=== PATIENT | female | born 1990 | race Caucasian/White ===

== ENCOUNTER 2018-06-28 09:02 | Day surgery (SDC) | payer MEDICAID ==
[2018-06-24 15:22] LABS: CLARITY,URINE SLIGHTLY CLOUDY (Clear); COLOR,URINE YELLOW (Yellow); GLUCOSE, URINE NEGATIVE (Neg); KETONES,URINE NEGATIVE (Neg); LEUKOCYTE ESTERASE ,URINE NEGATIVE (Neg); NITRITES, URINE NEGATIVE (Neg); OCCULT BLOOD,URINE SMALL (Neg); PROTEIN,URINE NEGATIVE (Neg); UA COLLECTION TYPE VOIDED; UROBILINOGEN,URINE 0.2 E.U/dL (0.2-1.0)
[2018-06-24 15:27] LABS: BASOPHILS # (AUTO) 0.1 X10'3 (0-0.2); BASOPHILS % (AUTO) 0.5 % (0-1); EOSINOPHILS # (AUTO) 0.4 X10'3 (0-0.9); EOSINOPHILS % (AUTO) 2.3 % (0-6); LYMPHOCYTES % (AUTO) 30.3 % (21-51); MEAN CORPUSCULAR HEMOGLOBIN 26.1 PG (27.0-31.0); MEAN CORPUSCULAR HGB CONC 33.8 g/dL (33.0-36.5); MEAN CORPUSCULAR VOLUME 77.4 FL (78-98); MEAN PLATELET VOLUME 6.6 FL (7.4-10.4); MONOCYTES # (AUTO) 0.9 X10'3 (0-0.9); MONOCYTES % (AUTO) 5.2 % (2-12); NEUTROPHILS # (AUTO) 10.1 X10'3 (1.8-7.7); NEUTROPHILS % (AUTO) 61.7 % (42-75); PRE OP HEMATOCRIT 32.1 % (35.0-45.0); PRE OP PLATELET COUNT 565 X10'3 (140-440); RED BLOOD COUNT 4.15 X10'6 (4.20-5.60); RED CELL DISTRIBUTION WIDTH 15.3 % (11.5-14.5)
[2018-06-24 15:29] LABS: MUCUS STRANDS FEW /LPF (Neg); SQUAMOUS EPITHELIAL CELL,UR MODERATE /LPF (FEW)
[2018-06-24 15:30] LABS: BACTERIA,URINE FEW /HPF (Neg); WBC,URINE 0-4 /HPF (0-4)
[2018-06-24 15:35] LABS: ALBUMIN 3.5 G/DL (3.4-5.0); ALBUMIN/GLOBULIN RATIO 0.8 (1.1-1.5); ALKALINE PHOSPHATASE 112 IU/L (46-116); BLOOD UREA NITROGEN 13 MG/DL (7-18); CALCIUM 8.6 MG/DL (8.5-10.1); CHLORIDE 103 MMOL/L (99-107); CREATININE 0.59 MG/DL (0.40-0.90); PRE OP ALT 20 U/L (30-65); PRE OP ANION GAP 11 (8-16); PRE OP AST 12 U/L (10-37); PRE OP BILIRUB, TOTAL 0.3 MG/DL (0.0-1.0); PRE OP GLUCOSE 82 MG/DL (70-104); PRE OP POTASSIUM 3.5 MMOL/L (3.4-5.1); PRE OP SODIUM 139 MMOL/L (135-145); TOTAL CARBON DIOXIDE 25.4 MMOL/L (24-32); TOTAL PROTEIN 7.8 G/DL (6.4-8.2); eGFR > 90 ML/MIN
[2018-06-24 15:37] LABS: PRE OP HEMOGLOBIN 10.9 g/dL (12.0-16.0)
[2018-06-24 15:40] LABS: PRE OP PROTIME 10.5 SECONDS (9.0-12.0)
[2018-06-24 16:19] LABS: ANISOCYTOSIS 1+; MICROCYTOSIS 1+; PLATELET ESTIMATE INCREASED; TOTAL CELLS COUNTED 100
[~2018-06-28] VITALS: Ht 157.5 cm; Wt 113.4 kg
[~2018-06-28 09:02] MED LIST: ACET-2119 PO; AMIT10TA6 PO; CLINDAmcin 900mg/NS 50ml IVPB 50 ML IV ONE; IBUP-1984 PO; LEVO75TA PO; NORG1TAB56 PO; famotidine 20mg tablet PO ONE; ringers solution, lacted 1,000 ML IV SCH
[2018-06-28] MEDS ORDERED: albumin (Human) 5% 250ml 250 ML IV ONE (12:23)
[2018-06-28] MEDS ORDERED: sevoflurane 250ml liquid IH ONE (12:41)
[2018-06-28] MEDS ORDERED: fentaNYL/PF 50MCG/1 ML 2ML syringe ONE ×2 (12:47→13:00)
[2018-06-28] MEDS ORDERED: midazolam 2 mg/2 ml injection ONE (12:47)
[2018-06-28] MEDS ORDERED: meperidine/PF 25mg/ml syringe IV PRN ×3 (13:25)
[2018-06-28] MEDS ORDERED: proCHLORperazine 10 MG/2 ml inj IV PRN (13:25)
[2018-06-28] MEDS ORDERED: morphine 4 MG/ML inj SYRINge IV PRN ×2 (13:25)
[2018-06-28] MEDS ORDERED: ondansetron/PF 4mg/2ml inj IV PRN (13:25)
[2018-06-28] MEDS ORDERED: ringers solution, lacted 1,000 ML IV SCH (13:25)
[2018-06-28] MEDS ORDERED: gentamicin inj 375 MG in normal saline 100ml IV soln 90.625 ML IV ONE (13:25)
[2018-06-28 13:55] VITALS: BP 142/80
--- NOTE | 2018-06-28 13:55 | NUR ---
Received from OR via bed, accompanied by Anesthesiologist. Report received. Initial physical assessment done and recorded.
[2018-06-28 14:05] VITALS: BP 140/78
[2018-06-28 14:15] VITALS: BP 138/80
[2018-06-28] MEDS ORDERED: glycopyrrolate 0.2mg/ml inj ONE (14:21)
[2018-06-28] MEDS ORDERED: neostigmine methylsulfate 1 MG/ML 10ml vial ONE (14:21)
[2018-06-28] MEDS ORDERED: dexamethasone sod phosphate 4mg/ml inj. ONE (14:21)
[2018-06-28] MEDS ORDERED: propofol inj 20 ML IV ONE (14:21)
[2018-06-28] MEDS ORDERED: naloxone 0.4 mg/ml inj ONE (14:21)
[2018-06-28] MEDS ORDERED: LIDOcaine 2% (20mg/ml) 5ml vial ONE (14:21)
[2018-06-28] MEDS ORDERED: rocuronium 10mg/ml inj IV ONE (14:21)
[2018-06-28] MEDS ORDERED: ondansetron/PF 4mg/2ml inj ONE (14:21)
[2018-06-28 14:25] VITALS: BP 137/78
[2018-06-28 14:35] VITALS: BP 147/78
[2018-06-28 14:45] VITALS: BP 148/78
--- NOTE | 2018-06-28 15:39 | NUR ---
Discharge criteria met, discharge instructions given, demonstrates verbal understanding. Discharged home in good condition.
[2018-06-29] MEDS ORDERED: gentamicin inj 375 MG in normal saline 100ml IV soln 90.625 ML IV ONE (05:30)
== END 2018-06-28 14:55 | disposition home or self-care (01) ==
LOC: PAS 09:02
PROVIDERS: ATTEND Surgery
DX: K80.10 Calculus of gallbladder with chronic cholecystitis without obstruction (principal); G43.909 Migraine, unspecified, not intractable, without status migrainosus; E03.9 Hypothyroidism, unspecified; Z88.0 Allergy status to penicillin; Z79.899 Other long term (current) drug therapy; Z98.890 Other specified postprocedural states
CPT/HCPCS: 36415; 47562; 80053; 81001; 82948; 85025; 85610; 85730; 93005; J1100; J1580; J2001; J2175; J2250; J2310; J2405; J2704; J2710; J3010; J7120; P9045; A6251; A7000; J3490; J7030